=== PATIENT | female | born 1970 | race Caucasian/White ===

== ENCOUNTER 2020-08-02 11:26 | Emergency (ER) | payer BC, MEDICAID ==
--- NOTE | 2020-08-02 13:03 | EDM.PDOC ---
ED HPI GENERAL MEDICAL PROBLEM - General Chief Complaint: Abdominal Pain Stated Complaint: LEFT ABDOMINAL PAIN Time Seen by Provider: 08/02/20 12:30 Source of Information: Reports: Patient, Family History Limitations: Reports: No Limitations - History of Present Illness INITIAL COMMENTS - FREE TEXT/NARRATIVE: 50-year-old female with left lower quadrant abdominal pain for the past 2 days. She also has pain when eating certain foods. No fevers or chills, no radiation of pain to the back. No urinary symptoms. Onset: Gradual Duration: Day(s): (2 days of pain) Location: Reports: Abdomen (Left lower quadrant) Quality: Reports: Sharp, Stabbing Worsens with: Reports: Other (Eating certain foods seems to make it worse) Associated Symptoms: Denies: Confusion, Chest Pain, Cough, Fever/Chills, Loss of Appetite, Nausea/Vomiting, Shortness of Breath Abdomen Pain Score (Numeric/FACES): 8 - Related Data Allergies Allergy/AdvReac Type Severity Reaction Status Date / Time amoxicillin Allergy Rash Verified 08/02/20 13:14 codeine Allergy Hyperactivi Verified 08/02/20 13:14 ty ibuprofen Allergy Rash Verified 08/02/20 13:14 levothyroxine Allergy Rash Verified 08/02/20 13:17 nortriptyline Allergy Sweating Verified 08/02/20 13:14 orange (food color) Allergy Rash Verified 08/02/20 13:14 Penicillins Allergy Rash Verified 08/02/20 13:14 Home Meds: Home Meds Acetaminophen [Tylenol Extra Strength] 1,000 mg PO TID 08/02/20 [History] Cetirizine [ZyrTEC] 10 mg PO DAILY 08/02/20 [History] Cyanocobalamin (Vitamin B12) [Vitamin B13] 500 mcg PO DAILY 08/02/20 [History] Divalproex Sodium [Depakote] 1,000 mg PO BEDTIME 08/02/20 [History] Levothyroxine Sodium [Synthroid] 175 mcg PO ACBREAKFAST 08/02/20 [History] Mv-Mn/Iron/Folic Acid/Herb 190 [Vitamin D3 Complete Caplet] 2 each PO DAILY 08/02/20 [History] Omeprazole 40 mg PO ACBREAKFAST 08/02/20 [History] QUEtiapine [SEROquel] 25 mg PO BEDTIME 08/02/20 [History] hydrOXYzine pamoate [Vistaril] 50 mg PO BEDTIME 08/02/20 [History] ED ROS GENERAL - Review of Systems Review Of Systems: See Below Constitutional: Reports: Chills, Malaise HEENT: Reports: No Symptoms Respiratory: Denies: Shortness of Breath Cardiovascular: Denies: Chest Pain GI/Abdominal: Reports: Abdominal Pain. Denies: Constipation, Diarrhea, Vomiting : Reports: No Symptoms Musculoskeletal: Reports: No Symptoms Skin: Reports: No Symptoms Neurological: Reports: No Symptoms Psychiatric: Reports: No Symptoms ED EXAM, GI/ABD - Physical Exam Exam: See Below Exam Limited By: No Limitations General Appearance: Alert, No Apparent Distress Eyes: Bilateral: Normal Appearance (No jaundice) Head: Atraumatic Respiratory/Chest: Lungs Clear Cardiovascular: Regular Rate, Rhythm GI/Abdominal Exam: Normal Bowel Sounds, Tender (She is tender with slight rebound tenderness in the left lower quadrant, also some palpation tenderness across the very upper abdomen bilaterally) Extremities: Normal Inspection Neurological: Alert, Oriented Psychiatric: Normal Affect, Normal Mood Skin Exam: Warm, Dry Course - Vital Signs Last Recorded V/S: Last Vital Signs Temp 98.2 F 08/02/20 13:09 Pulse 88 08/02/20 13:09 Resp 18 08/02/20 13:09 BP 146/93 H 08/02/20 13:09 Pulse Ox 96 08/02/20 13:09 - Orders/Labs/Meds Labs: Laboratory Tests 08/02/20 08/02/20 Range/Units 13:02 13:02 WBC 11.8 H (4.5-11.0) K/uL RBC 4.04 (3.30-5.50) M/uL Hgb 12.3 (12.0-15.0) g/dL Hct 38.6 (36.0-48.0) % MCV 96 (80-98) fL MCH 30 (27-31) pg MCHC 32 (32-36) % Plt Count 311 (150-400) K/uL Neut % (Auto) 65 (36-66) % Lymph % (Auto) 24 (24-44) % Hubbard % (Auto) 10 H (2-6) % Eos % (Auto) 1 L (2-4) % Baso % (Auto) 0 (0-1) % Sodium 141 (140-148) mmol/L Potassium 4.3 (3.6-5.2) mmol/L Chloride 99 L (100-108) mmol/L Carbon Dioxide 32 (21-32) mmol/L Anion Gap 14.3 H (5.0-14.0) mmol/L BUN 12 (7-18) mg/dL Creatinine 0.9 (0.6-1.0) mg/dL Est Cr Clr Drug Dosing 69.23 mL/min Estimated GFR (MDRD) > 60 (>60) Glucose 93 (74-106) mg/dL Calcium 9.1 (8.5-10.1) mg/dL Total Bilirubin 0.3 (0.2-1.0) mg/dL AST 10 L (15-37) U/L ALT 22 (12-78) U/L Alkaline Phosphatase 110 (46-116) U/L Total Protein 7.5 (6.4-8.2) g/dL Albumin 3.2 L (3.4-5.0) g/dL Globulin 4.3 H (2.3-3.5) g/dL Albumin/Globulin Ratio 0.7 L (1.2-2.2) Lipase 134 (73-393) U/L - Re-Assessments/Exams Free Text/Narrative Re-Assessment/Exam: 08/02/20 13:37 CBC, CMP and lipase were obtained. White count was mildly elevated at 11,500, chemistry panel was normal and lipase normal. A CT of the abdomen and pelvis without contrast was ordered to assess for diverticulitis. 08/02/20 14:58 CT confirmed sigmoid diverticulitis. She will be placed on Bactrim and metronidazole for at least 7 days, encouraged her to drink lots of water and ke ep her stools soft and recheck if not improving after several days. Departure - Departure Time of Disposition: 15:00 Disposition: Home, Self-Care 01 Clinical Impression: Diverticulitis Abdominal pain Qualifiers: Abdominal location: left lower quadrant Qualified Code(s): R10.32 - Left lower quadrant pain - Discharge Information Instructions: Diverticulitis, [id number] Referrals: PCP,None [Primary Care Provider] - Forms: ED Department Discharge Care Plan Goals: Take both antibiotics as prescribed for at least 7 days, you may stop at that time if back to normal or continue until 10 days if needed. Regular Tylenol for pain, add stronger pain pills if needed. Drink lots of water and use stool softeners like MiraLAX especially if taking the stronger pain medicine. Consider rechecking in 3 to 4 days if not improving significantly, or return anytime if worsening such as fever, increased pain or vomiting the medication. Sepsis Event Note (ED) - Focused Exam Vital Signs: Vital Signs Temp Pulse Resp BP Pulse Ox 08/02/20 13:09 98.2 F 88 18 146/93 H 96 08/02/20 12:25 98.2 F 88 18 146/93 H 96
--- NOTE | 2020-08-02 14:29 | CT ---
Abdomen Pelvis wo Cont CLINICAL HISTORY: Left lower quadrant pain COMPARISON: None. TECHNIQUE: Axial tomographic images are obtained from the dome of the diaphragm to the pubic symphysis without IV contrast enhancement. No oral contrast was used. The dosage reduction and iterative reconstruction techniques employed. FINDINGS: There is sigmoid diverticulosis. There is thickening of the proximal third of the sigmoid colon with moderate stranding in the perirenal colic fat. No free air is identified. No definite fluid collections are seen. The lung bases are clear. The liver shows diffuse fatty infiltration. It is enlarged. The gallbladder contains some internal densities which may represent small stones or sludge.. The spleen has a normal size and shape. The pancreas shows no mass or inflammatory change. The adrenal glands appear normal bilaterally. The right kidney contains a 3.8 x 3.8 x 4.0 cm low-attenuation focus. This likely represents a large cyst. This should be correlated with ultrasound. No stones are seen. The ureters have a normal course and contour. The bladder has normal contour. The aorta has a normal contour. There is some periaortic adenopathy. Largest node is on the right measuring 1.8 x 1.0 cm. IMPRESSION: Sigmoid diverticulosis with moderate changes of diverticulitis There are some small densities in the gallbladder suggesting stones Hepatomegaly with moderate fatty infiltration of the liver 3.8 x 3.8 x 4.0 cm low-attenuation structure in the right kidney may represent a cyst but should be correlated with ultrasound. Periaortic lymph nodes are described above
== END 2020-08-02 15:05 | disposition home or self-care (01) ==
LOC: JP.ED 11:26
DX: K57.32 Diverticulitis of large intestine without perforation or abscess without bleeding (principal); D72.829 Elevated white blood cell count, unspecified; Z88.0 Allergy status to penicillin; Z88.5 Allergy status to narcotic agent; Z88.6 Allergy status to analgesic agent; Z88.8 Allergy status to other drugs, medicaments and biological substances; Z91.018 Allergy to other foods; Z79.899 Other long term (current) drug therapy
CPT/HCPCS: 36415; 74176; 74176-26; 80053; 83690; 85025; 99284-25